=== PATIENT | male | born 1995 | race American Indian/Alaskan Native ===

== ENCOUNTER 2018-01-22 15:56 | Emergency (ER) | payer BC, OTHER ==
[2018-01-22 16:04] VITALS: RESP 18
[2018-01-22] MEDS ORDERED: Oxycodone/Acetaminophen 5/325 mg Tab PO STA (16:30)
[2018-01-22] MEDS ORDERED: Oxycodone/Acetaminophen 5/325 mg Tab ONE (16:34)
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
--- NOTE | 2018-01-22 17:29 | CT ---
Date of service: 01/22/2018 PROCEDURE: CT MAXILLOFACIAL BONES WITHOUT CONTRAST HISTORY: COMPARISON: None TECHNIQUE: Contiguous axial CT images of the maxillofacial bones were obtained. Coronal and sagittal reformats were generated. Radiation dose: Total exam DLP = 874.3 mGy-cm. This CT exam was performed using one or more of the following dose reduction techniques: Automated exposure control, adjustment of the mA and/or kV according to patient size, and/or use of iterative reconstruction technique. FINDINGS: NASAL BONES: Unremarkable. ORBITS: Unremarkable. PARANASAL SINUSES/ MASTOIDS: Clear. MAXILLA: 0.7 x 0.9 x 1.0 cm left central incisor periapical cyst. MANDIBLE/ TEMPOROMANDIBULAR JOINTS: Minimally displaced oblique fracture through the mandibular symphysis with anterior translation of the left mandibular hemisphere. Comminuted fracture with predominantly transverse component through the right mandibular angle SKULL BASE: Unremarkable. TEMPORAL BONES: Middle ears and mastoid grossly unremarkable. OTHER FINDINGS: Extensive right worse than left perimandibular subcutaneous emphysema. IMPRESSION: Comminuted fracture through the right mandibular angle and minimally displaced oblique fracture to the mandibular symphysis with anterior translation of the left mandible. Extensive amount of subcutaneous emphysema deep to the fractures, right worse than left.
[2018-01-22 17:58] LABS: BASO # 0.1 K/uL (0.0-0.2); BASO % 0.3 % (0.0-2.0); EOS % 0.2 % (0.0-4.0); HEMOGLOBIN 14.7 g/dL (12.0-18.0); LYMPH # 0.8 K/uL (1.0-4.3); LYMPH % 4.7 % (20.0-40.0); MEAN CELL VOLUME 82.2 fL (80.0-94.0); MEAN CORPUSCULAR HEMOGLOBIN 26.5 pg (27.0-31.0); MEAN CORPUSCULAR HGB CONC 32.2 g/dL (33.0-37.0); MEAN PLATELET VOLUME 8.1 fL (7.2-11.7); MONO # 1.3 K/uL (0.0-0.8); MONO % 7.6 % (0.0-10.0); NEUT # 14.6 K/uL (1.8-7.0); NEUT % 87.2 % (50.0-75.0); NRBC % 0.1 % (0.0-2.0); PLATELET COUNT 221 K/uL (130-400); RBC 5.56 Mil/uL (4.40-5.90); RED CELL DISTRIBUTION WIDTH 13.8 % (11.5-14.5); WHITE BLOOD COUNT 16.8 K/uL (4.8-10.8)
[2018-01-22 18:04] VITALS: O2SAT 100
[2018-01-22 18:07] LABS: ALB/GLOB RATIO 1.7 (1.0-2.1); ALBUMIN 4.9 g/dL (3.5-5.0); ALT/SGPT 28 U/L (21-72); AST/SGOT 30 U/L (17-59); BLOOD UREA NITROGEN 11 mg/dL (9-20); CALCIUM 9.7 mg/dl (8.6-10.4); GFR AFRICAN-AMERICAN > 60; GFR NON-AFRICAN AMERICAN > 60
[2018-01-22 18:26] LABS: INR 1.1; PROTHROMBIN TIME 11.9 SECONDS (9.7-12.2)
[2018-01-22 18:54] LABS: LYMPHOCYTE 3 % (20-40); MONOCYTE 8 % (0-10); NEUTROPHIL 89 % (50-75); PLATELET ESTIMATE NORMAL (NORMAL); TOTAL CELLS COUNTED 100
[2018-01-22 19:25] VITALS: BP 138/71; PULSE 85; TEMP 98.9
== END 2018-01-22 20:55 | disposition short-term general hospital (02) ==
LOC: C.ER 15:56
DX: S02.609A Fracture of mandible, unspecified, initial encounter for closed fracture (principal); Y04.0XXA Assault by unarmed brawl or fight, initial encounter; Y92.9 Unspecified place or not applicable
CPT/HCPCS: 70486; 80053; 85025; 85610; 85730; 96372; 99284; J1885